=== PATIENT | male | born 1930 | race Caucasian/White ===

== ENCOUNTER 2018-05-01 09:05 | Emergency (ER) | payer MEDICARE, OTHER ==
[~2018-05-01] VITALS: Ht 180.3 cm; Wt 99.8 kg
[~2018-05-01 09:05] MED LIST: ALLO100T PO; ASPI81CH43 PO; DOXY75CA4 PO; HYDR12.56 PO; LATA0.0020 OP; LISI-646 PO; METF500T5 PO; PRAV20TA3 PO; PREG75CA PO; TIMO0.5S38 OP
[2018-05-01] MEDS ORDERED: SODIUM BICARBONATE 8.4% INJ 50ML SYRINGE ONE ×4 (09:10→09:43)
[2018-05-01] MEDS ORDERED: DOPamine 1600MCG/ML D5W 250 ML IV SCH (09:14)
[2018-05-01] MEDS ORDERED: EPINEPHrine HCL 250 ML IV SCH (09:14)
[2018-05-01 09:24] VITALS: BP 185/119
[2018-05-01] MEDS ORDERED: NOREPINEPHRINE 8 MG/250ML KIT 250 ML IV ONE (09:32)
[2018-05-01] MEDS ORDERED: NOREPINEPHRINE 8 MG/250ML KIT 250 ML IV SCH (09:39)
[2018-05-01 09:41] LABS: Hematocrit 31.1 % (41.0-53.0)
[2018-05-01] MEDS ORDERED: EPINEPHrine HCL 1 MG/10 ML SYRG ONE (09:41)
[2018-05-01 09:42] LABS: Hemoglobin 9.1 g/dL (13.5-17.5); Mean Corpuscular Hemoglobin 22.2 pg (28.0-32.0); Mean Corpuscular Hgb Conc. 29.1 g/dL (32.0-36.0); Mean Corpuscular Volume 76.4 fL (80.0-100.0); Platelet Count (auto) 99 10^3/uL (140-450); Red Blood Cells 4.07 10^6/uL (4.5-5.90); Red Cell Distribution Width 18.1 % (11.8-14.3); White Blood Cell 9.9 10^3/uL (4.4-10.8)
[2018-05-01 09:57] LABS: Albumin 2.6 g/dL (3.4-5.0); Magnesium 2.8 mg/dL (1.6-2.6)
[2018-05-01 10:02] LABS: BUN/Creatinine Ratio 20.3; Bilirubin, Total 0.5 mg/dL (0.2-1.0); Total Protein 5.4 g/dL (6.4-8.2)
[2018-05-01 10:08] LABS: Potassium 5.8 mmol/L (3.5-5.1)
[2018-05-01 10:09] LABS: Band Neutrophils % (manual) 0; Basophils % (manual) 0 (0.0-2.0); Blast Cells 0; Myelocytes % 0; Promyelocytes % 0; Reactive Lymphocytes 0
[2018-05-01 10:17] LABS: Eosinophils % (manual) 1 (0-7); Lymphocytes % (manual) 55 (10.0-50.0); Metamyelocytes % 2; Monocytes % (manual) 2 (0-12)
== END 2018-05-01 10:59 | disposition expired ==
LOC: ER 09:05 → EDBD 09:05 → EDUNIT# 09:05 → ER 10:59
DX: I46.9 Cardiac arrest, cause unspecified (principal); I51.7 Cardiomegaly
CPT/HCPCS: 36415; 36556; 71045; 80053; 83735; 84484; 85007; 85025; 85027; 92950; 93005; 99291; J0171